=== PATIENT | female | born 1985 | race Caucasian/White ===

== ENCOUNTER 2021-04-07 18:56 | Emergency (ER) | payer MEDICAID ==
[~2021-04-07] VITALS: Ht 170.2 cm; Wt 113.4 kg
[2021-04-07] MEDS ORDERED: CLEOCIN HCL300 MG PO (21:54)
--- OUTSIDE RECORDS SUMMARY | 2021-04-07 22:06 | XMS ---
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 E.Olga VISIT COUNT (12 MO.) [address] [facility] [facility] 1 [facility] 3 [facility] [address] [facility] 1 [facility] TOTAL 8 NOTE: Visits indicate total known visits. ED/UCC VISIT TRACKING (12 MO.) 04/07/2021 18:57 [place] TYPE: Emergency COMPLAINT: - FEVER, DIFF BREATHING 01/27/2021 18:37 [facility] Keegan Rueda [place] TYPE: Emergency COMPLAINT: - LT ARM PIT PAIN 01/07/2021 18:09 [facility] Rocky Perera [place] TYPE: Emergency DIAGNOSES: - *diarreaha/abdominal pain - Diarrhea, unspecified - Elevated blood-pressure reading, without diagnosis of hypertension - Diarrhea (Adult) 11/25/2020 17:54 [facility] Keegan Rueda [place] TYPE: Emergency COMPLAINT: - PAINFUL URINATION 08/07/2020 20:04 [facility] [place] TYPE: Emergency DIAGNOSES: - Dental Pain - Periapical abscess without sinus - Other specified disorders of teeth and supporting structures 06/21/2020 20:50 [facility] Keegan Rueda [place] TYPE: Emergency COMPLAINT: - FACIAL SWELLING, DENTAL PAIN 05/22/2020 23:28 [facility] TYPE: Emergency DIAGNOSES: 29041. fever, r side pain 41301. Tubulo-interstitial nephritis, not specified as acute or chronic 05/13/2020 21:15 [facility] TYPE: Emergency DIAGNOSES: - Flank Pain - Tubulo-interstitial nephritis, not specified as acute or chronic - RT FLANK PAIN, SWEATING, LIGHTHEADED, WEAKNESS, SHORTNESS OF BREATH X2 - Calculus of kidney INPATIENT VISIT TRACKING (12 MO.) 05/22/2020 23:28 [facility] TYPE: Family Practice DIAGNOSES: 94631. Tubulo-interstitial nephritis, not specified as acute or chronic 42057. Renal and perinephric abscess 05/13/2020 21:15 [facility] TYPE: Inpatient DIAGNOSES: - Unspecified Escherichia coli [E. coli] as the cause of diseases classified elsewhere - Renal and perinephric abscess - Acute kidney failure, unspecified - Tubulo-interstitial nephritis, not specified as acute or chronic - Calculus of kidney - Bacteremia [email or web address]
--- NOTE | 2021-04-08 07:11 | EKG ---
[facility] [address] [place], [place] [address] Signed Sinus tachycardia Otherwise normal ECG No previous ECGs available Confirmed by DANIELE LEDESMA MD ([id number]) on 04/08/2021 7:11:21 AM Electronically Signed By: DANIELE LEDESMA MD 04/08/21710 PATIENT NAME: BARON VELARDE Electrocardiogram DATE OF : 87 PHYSICIAN: DANIELE LEDESMA MD REPORT #: [id number] REPORT IS CONFIDENTIAL AND NOT TO BE RELEASED WITHOUT AUTHORIZATION
== END 2021-04-07 22:04 | disposition home or self-care (01) ==
LOC: ED 18:56
DX: K04.7 Periapical abscess without sinus (principal); Z20.822 Contact with and (suspected) exposure to COVID-19; F17.200 Nicotine dependence, unspecified, uncomplicated
CPT/HCPCS: 70491; 71045; 80053; 81001; 83605; 85025; 93005; 93010; 99284-25; C9803; J7030; Q9967; U0003